=== PATIENT | female | born 2000 | race Caucasian/White ===

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

== ENCOUNTER 2020-11-11 14:18 | Outpatient (CLI) | payer OTHER ==
[~2020-11-11] VITALS: Ht 167.6 cm; Wt 117.7 kg
[~2020-11-11 14:18] MED LIST: MIRALAX17 GM PO
[2020-11-11 14:21] VITALS: Ht 167.6 cm; Wt 117.7 kg
[2020-11-11 15:11] LABS: CALC OSMOLALITY 269 mosm/kg (275-300); CARBON DIOXIDE 23.3 mmol/L (21.0-32.0); CHLORIDE - SERUM 103 mmol/L (98-107); CREATININE - SERUM 0.6 mg/dL (0.6-1.3); GLUCOSE 83 mg/dL (74-106); POTASSIUM - SERUM 3.7 mmol/L (3.5-5.1); SODIUM 137 mmol/L (136-145); UREA NITROGEN 4 mg/dL (7-18); eGFR NON AFRICAN AMERICAN > 90 mL/min (90-120)
[2020-11-11 15:12] LABS: BASOPHILS 0.2 % (0-2); EOSINOPHILS 1.3 % (0-7); HEMATOCRIT 37.7 % (36.0-48.0); HEMOGLOBIN 13.5 g/dL (12-16); IMMATURE GRANULOCYTES 0.4 % (0-5); LYMPHOCYTE ABS# 3.64 10x3/uL (1.18-3.74); LYMPHOCYTES 33.1 % (15-50); MCH 32.8 pg (26.0-34.0); MCHC 35.8 g/dL (31.0-37.0); MCV 91.5 fL (80.0-100.0); MEAN PLATELET VOLUME 10.8 fL (7.4-10.4); MONOCYTES 6.1 % (2-11); NEUTROPHILS 58.9 % (40-80); RBC 4.12 10x6/uL (4.00-5.40); RDW 13.5 % (11.5-14.5)
[2020-11-11 15:15] LABS: PLATELET COUNT 200 10x3/uL (130-400)
[2020-11-11 15:17] LABS: ALKALINE PHOSPHATASE 85 U/L (30-120); ALT (SGPT) 12 U/L (10-68); BILIRUBIN - TOTAL 0.34 mg/dL (0.2-1.3); PROTEIN - SERUM 6.8 g/dL (6.4-8.2)
[2020-11-11 15:30] VITALS: BP 105/59
[2020-11-11 15:31] LABS: BILIRUBIN NEGATIVE (NEGATIVE); KETONE NEGATIVE (NEGATIVE); NITRITE NEGATIVE (NEGATIVE); UROBILINOGEN NORMAL mg/dL (< 2)
[2020-11-11 18:30] LABS: BASOPHILS 0.2 % (0-2); EOSINOPHILS 1.2 % (0-7); HEMATOCRIT 35.6 % (36.0-48.0); HEMOGLOBIN 12.5 g/dL (12-16); IMMATURE GRANULOCYTES 0.5 % (0-5); LYMPHOCYTE ABS# 3.56 10x3/uL (1.18-3.74); LYMPHOCYTES 33.2 % (15-50); MCH 32.1 pg (26.0-34.0); MCHC 35.1 g/dL (31.0-37.0); MCV 91.3 fL (80.0-100.0); MEAN PLATELET VOLUME 10.7 fL (7.4-10.4); MONOCYTES 6.2 % (2-11); NEUTROPHILS 58.7 % (40-80); PLATELET COUNT 201 10x3/uL (130-400); RDW 13.7 % (11.5-14.5); WBC 10.7 10x3/uL (4.8-10.8)
== END 2020-11-11 20:07 | disposition other institution (70) ==
LOC: D.LDO 14:18 → D.ER 14:18 → EDSTATUS 16:12 → D.LDO 20:07
PROVIDERS: Emergency Medicine; ATTEND Obstetrics & Gynecology
DX: O26.899 Other specified pregnancy related conditions, unspecified trimester (principal); M54.5 Low back pain; W19.XXXA Unspecified fall, initial encounter

== ENCOUNTER → 2020-12-04 19:09 | Outpatient (CLI) | payer OTHER ==
[2020-11-11 14:21] VITALS: BMI 41.9
[2020-12-04 20:26] LABS: BILIRUBIN NEGATIVE (NEGATIVE); KETONE NEGATIVE (NEGATIVE); NITRITE NEGATIVE (NEGATIVE); UROBILINOGEN NORMAL mg/dL (< 2)
== END | disposition home or self-care (01) ==
LOC: D.LDO 19:09
PROVIDERS: ATTEND Student in an Organized Health Care Education/Training Program
DX: O26.899 Other specified pregnancy related conditions, unspecified trimester (principal); R10.30 Lower abdominal pain, unspecified